=== PATIENT | male | born 1975 | race American Indian/Alaskan Native ===

== ENCOUNTER 2017-01-18 19:25 | Emergency (ER) | payer SELFPAY ==
[2017-01-18 19:39] VITALS: TEMP 98; BMI 26.6
[2017-01-18] MEDS ORDERED: Sodium Chloride 0.9% 500 ML IV STA (20:04)
--- NOTE | 2017-01-18 20:08 | ED PDOC ---
Arrival/HPI - General Chief Complaint: High Blood Pressure Time Seen by Provider: 01/18/17 19:50 Historian: Patient - History of Present Illness Narrative History of Present Illness (Text): 01/18/17 20:05 41 y.o. male whose Past medical history includes hypertension who is visiting from [place] (and is due to return in a week) who reports that over the past week he has been experiencing mild intermittent dizziness with occasional mild headache. No n/v/d or abd pain or chest pain or shortness of breath or fever. He takes 10 mg lisinopril daily and felodipine (dose unknown). He reports taking his meds over the past week and ran out today but admits that he is not alway compliant. Time/Duration: > week Past Medical History - Provider Review Nursing Documentation Reviewed: Yes - Travel History If Yes, travel location?: [place] - Cardiac Hx Hypertension: Yes - Psychiatric Hx Substance Use: No - Surgical History Other/Comment: hernia Family/Social History - Physician Review Nursing Documentation Reviewed: Yes Family/Social History: No Known Family HX Smoking Status: Never Smoked Hx Alcohol Use: No Hx Substance Use: No Allergies/Home Meds Allergies/Adverse Reactions: Allergies No Known Allergies Allergy (Verified 01/18/17 19:59) Review of Systems - Review of Systems Constitutional: absent: Fatigue ENT: Normal Respiratory: Normal Cardiovascular: Normal Gastrointestinal: Normal Genitourinary Male: Normal Neurological: Headache (mild), Dizziness (occasional) Physical Exam Vital Signs Temp Pulse Resp BP Pulse Ox 01/18/17 21:15 70 18 152/78 H 100 01/18/17 21:01 149/97 H 01/18/17 20:54 79 18 162/89 H 99 01/18/17 19:36 98.0 F 88 16 166/96 H 99 Temperature: Afebrile Blood Pressure: Hypertensive Pulse: Regular Respiratory Rate: Normal Appearance: Positive for: Well-Appearing, Non-Toxic, Comfortable Pain Distress: None Mental Status: Positive for: Alert and Oriented X 3 - Systems Exam Head: Present: Atraumatic, Normocephalic Pupils: Present: PERRL Extroacular Muscles: Present: EOMI Conjunctiva: Present: Normal Mouth: Present: Moist Mucous Membranes Pharnyx: Present: Normal. No: ERYTHEMA, EXUDATE Neck: Present: Normal Range of Motion Respiratory/Chest: Present: Clear to Auscultation, Good Air Exchange. No: Respiratory Distress, Accessory Muscle Use Cardiovascular: Present: Regular Rate and Rhythm, Normal S1, S2. No: Murmurs Abdomen: Present: Normal Bowel Sounds. No: Tenderness, Distention, Peritoneal Signs Back: Present: Normal Inspection Upper Extremity: Present: Normal Inspection. No: Cyanosis, Edema Lower Extremity: Present: Normal Inspection. No: Edema Neurological: Present: GCS=15, CN II-XII Intact, Speech Normal Skin: Present: Warm, Dry, Normal Color. No: Rashes Psychiatric: Present: Alert, Oriented x 3, Normal Insight, Normal Concentration Medical Decision Making ED Course and Treatment: 01/18/17 20:08 Impression: The patient is a [place] visitor with a history of Hypertension with symptoms of mild dizziness and occasional headache with normal exam: Differential: poorly controlled hypertension vs electrolyte abnormality vs. tension headache Plan: -EKG -Labs -Clonidine, tylenol, and IVF Progress Notes: EKG shows NSR at 81 BPM with borderline LVH by voltage, normal intervals, normal axis, no ST/T changes. Interpreted by me. 01/18/17 22:30 Patient with noted history. Labs are unremarkable as is EKG. BP is borderline elevated - will have him increase his lisinopril to 20mg daily and have him use amlodipine 5 mg daily, and he will follow up his pmd in [place]. - Lab Interpretations Lab Results: 01/18/17 20:45 01/18/17 21:10 Lab Results 01/18/17 21:10: Sodium 139, Potassium 3.9, Chloride 103, Carbon Dioxide 27, Anion Gap 13, BUN 14, Creatinine 0.9, Est GFR ( Amer) > 60, Est GFR (Non- Af Amer) > 60, Random Glucose 78, Calcium 8.9, Magnesium 2.1, Total Bilirubin 0.7, AST 61 H, ALT 54, Alkaline Phosphatase 70, Lactate Dehydrogenase 389, Total Creatine Kinase 185, Troponin I < 0.01, Total Protein 7.7, Albumin 4.3, Globulin 3.4, Albumin/Globulin Ratio 1.3 01/18/17 20:45: WBC 5.1, RBC 5.01, Hgb 15.1, Hct 42.8, MCV 85.4, MCH 30.1, MCHC 35.3, RDW 12.0, Plt Count 286, MPV 10.0, Gran % 34.9 L, Lymph % (Auto) 59.6 H, Dor[place] % (Auto) 4.7, Eos % (Auto) 0.6 L, Baso % (Auto) 0.2, Gran # 1.79, Lymph # 3.1, Dorado # 0.2, Eos # 0.0, Baso # 0.01 - Medication Orders Current Medication Orders: Discontinued Medications Acetaminophen (Tylenol 325mg Tab) 975 mg PO STAT STA Stop: 01/18/17 20:05 Last Admin: 01/18/17 21:00 Dose: 975 mg Amlodipine Besylate (Norvasc) 5 mg PO STAT STA Stop: 01/18/17 20:48 Last Admin: 01/18/17 21:01 Dose: 5 mg Sodium Chloride (Sodium Chloride 0.9%) 500 mls @ 999 mls/hr IV .Q31M STA Stop: 01/18/17 20:34 Last Admin: 01/18/17 20:30 Dose: 999 mls/hr Disposition/Present on Arrival - Present on Arrival Any Indicators Present on Arrival: No History of DVT/PE: No History of Uncontrolled Diabetes: No Urinary Catheter: No History of Decub. Ulcer: No History Surgical Site Infection Following: None - Disposition Have Diagnosis and Disposition been Completed?: Yes Diagnosis: Dizziness, Poorly-controlled hypertension Disposition: HOME/ ROUTINE Disposition Time: 22:35 Patient Plan: Discharge Condition: GOOD Discharge Instructions (ExitCare): Hypertension (ED) Additional Instructions: Avoid foods that are high in sodium. Take the medications as prescribed. Follow up with your primary care doctor in [facility] or the medical clinic. Return to the emergency department if any new concerning symptoms. Prescriptions: amLODIPine [Norvasc] 1 tab PO DAILY #30 tab Lisinopril [Zestril] 1 tab PO DAILY #30 tab Referrals: [facility] [place] - Follow up with primary
[2017-01-18 20:53] LABS: ADD MANUAL DIFF? NO
[2017-01-18 20:54] VITALS: RESP 18
[2017-01-18 21:09] LABS: BASO # 0.01 K/mm3 (0.0-2.0); BASO % 0.2 % (0.0-3.0); EOS % 0.6 % (1.5-5.0); GRAN # 1.79 (1.4-6.5); GRAN % 34.9 % (50.0-68.0); HEMATOCRIT 42.8 % (42.0-52.0); LYMPH # 3.1 (1.2-3.4); LYMPH % 59.6 % (22.0-35.0); MEAN CELL VOLUME 85.4 fL (80.0-105.0); MEAN CORPUSCULAR HEMOGLOBIN 30.1 pg (25.0-35.0); MEAN CORPUSCULAR HGB CONC 35.3 g/dl (31.0-37.0); MONO # 0.2 (0.1-0.6); MONO % 4.7 % (1.0-6.0); PLATELET COUNT 286 10^3/uL (120.0-450.0); WHITE BLOOD COUNT 5.1 10^3/ul (4.5-11.0)
[2017-01-18 21:50] VITALS: BP 152/78; PULSE 70; O2SAT 100
[2017-01-18 21:59] LABS: ALB/GLOB RATIO 1.3 (1.1-1.8); ALKALINE PHOSPHATASE 70 U/L (38-133); ALT/SGPT 54 U/L (7-56); AST/SGOT 61 U/L (15-59); BILIRUBIN,TOTAL 0.7 mg/dL (0.2-1.3); BLOOD UREA NITROGEN 14 mg/dL (7-21); CALCIUM 8.9 mg/dL (8.4-10.5); CARBON DIOXIDE 27 mmol/L (21-33); CHLORIDE 103 mmol/L (98-107); GFR AFRICAN-AMERICAN > 60; GLUCOSE,RANDOM 78 mg/dL (70-110); MAGNESIUM 2.1 mg/dL (1.7-2.2); POTASSIUM 3.9 mmol/L (3.6-5.0); SODIUM 139 mmol/L (132-148); TOTAL PROTEIN 7.7 g/dL (5.8-8.3)
[2017-01-18 22:15] LABS: TROPONIN I < 0.01 ng/mL
--- NOTE | 2017-01-19 10:41 | CARD ---
APPROVED REPORT EKG Measurement Heart [id number] <Conclusion> Normal sinus rhythm LVH by voltage
== END 2017-01-18 23:00 | disposition home or self-care (01) ==
LOC: ED 19:25
DX: R42 Dizziness and giddiness (principal); I10 Essential (primary) hypertension
CPT/HCPCS: 80053; 82550; 83615; 83735; 84484; 85025; 93005; 99284; J7040